=== PATIENT | female | born 2005 | race Caucasian/White ===

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

== ENCOUNTER 2024-01-07 13:17 | Outpatient (CLI) | payer MEDICAID, SELFPAY ==
--- NOTE | 2024-01-07 13:23 | US_ITS ---
PROCEDURE: US OB FOLLOW UP CLINICAL INDICATION: Spine was not well visualized due to position COMPARISON: US US OB TRANSVAGINAL from 09/02/2023 US US OB /MATERNAL DETAIL from 12/17/2023 FINDINGS: Transabdominal sonographic images of the pelvis were obtained. The following parameters are obtained: From her established due date she is 22weeks 6days Viable fetus in the breech presentation with a posterior placenta grade 1. The cervix measures 3.1 cm heart rate: 139bpm bpm. Amniotic fluid: Normal, MVP 3.35 cm. No obvious anomalies evident. profile seen, stomach, bladder, kidneys, three-vessel cord, four chamber heart appear normal. IMPRESSION: 1. Viable fetus in the presentation with a posterior placenta grade 1. 2. The fluid is within normal limits, MVP 3.35 cm. 3. Limited anatomical scan appears normal. 4. Spinal views appear normal although still incomplete due to position. Fetus was in the breech presentation with the breech deep in the pelvis. 5. Suggest repeat scan at 28 weeks. Dictated by: Noel Montelongo MD 01/08/2024 08:46 Noel Montelongo MD in [facility] 01/08/2024 08:46
== END 2024-01-07 23:59 | disposition home or self-care (01) ==
LOC: RAD 13:19
PROVIDERS: Visit Provider Obstetrics & Gynecology
DX: Z36.2 Encounter for other antenatal screening follow-up (principal); Z3A.22 22 weeks gestation of pregnancy
CPT/HCPCS: 76816